=== PATIENT | female | born 1970 | race Caucasian/White ===

== ENCOUNTER 2017-02-27 10:18 | Emergency (ER) | payer BC ==
[~2017-02-27] VITALS: Ht 170.2 cm; Wt 67.2 kg
[2017-02-27 10:43] VITALS: BP 110/75; PULSE 68; RESP 16; TEMP 98.6; O2SAT 100
[2017-02-27 11:00] VITALS: BP 110/75; PULSE 68; RESP 16; TEMP 98.6; O2SAT 100
--- NOTE | 2017-02-27 11:05 | PD ---
HPI Chief Complaint: Abdominal Pain Time Seen by Provider: 10:49 Travel History International Travel<30 days: No Contact w/Intl Traveler<30days: No Traveled to known affect area: No History of Present Illness HPI The patient was seen and examined in the presence of the nurse. This patient has been having intermittent lower abdominal pain for 2 weeks. It's brought on by eating. Within 30 minutes of eating she gets cramping in the bilateral lower quadrants and then has diarrhea. Occasionally has bright red blood in the stool. No fever. No vomiting. She called her primary physician's office for follow-up and they told her to come to the emergency room instead. Symptoms severity is moderate. No alleviating factors. Worsened by eating PFSH Social History Alcohol Use: No Tobacco Use: No Substance Use: No Allergies-Medications (Allergen,Severity, Reaction): Coded Allergies: Animal Dander (Verified Allergy, Severe, 04/22/04) Dust (Verified Allergy, Severe, 04/22/04) Reported Meds & Prescriptions Reported Meds & Active Scripts Active Reported Topamax (Topiramate) 50 Mg Tab 50 Mg PO BID Hydrocortisone 10 Mg Tab 12.5 Mg PO DAILY Take with food to decrease GI upset Hydrocortisone 5 Mg Tab 5 Mg PO NOON Take with food to decrease GI upset Hydrocortisone 5 Mg Tab 3.5 Mg PO DAILY@1600 Take with food to decrease GI upset Review of Systems General / Constitutional: No: Fever Eyes: No: Visual changes HENT: No: Headaches Cardiovascular: No: Chest Pain or Discomfort Respiratory: No: Shortness of Breath Gastrointestinal: Positive: Abdominal Pain, Hematochezia Genitourinary: No: Dysuria Musculoskeletal: No: Pain Skin: No Rash Neurologic: No: Weakness Psychiatric: No: Depression Endocrine: No: Polydipsia Hematologic/Lymphatic: No: Easy Bruising Physical Exam Narrative GENERAL: Well-nourished, well-developed patient in no apparent distress. SKIN: Focused skin assessment reveals no rash and nodules. Skin is Warm and dry. HEAD: Atraumatic. Normocephalic. EYES: Pupils equal and round. No scleral icterus. No injection or drainage. ENT: No nasal bleeding or discharge. Mucous membranes pink and moist. NECK: Trachea midline. No JVD. CARDIOVASCULAR: Regular rate and rhythm. No murmur appreciated. RESPIRATORY: No accessory muscle use. Clear to auscultation. Breath sounds equal bilaterally. GASTROINTESTINAL: Abdomen soft, non-tender, nondistended. Hepatic and splenic margins not palpable. MUSCULOSKELETAL: No obvious deformities. No clubbing. No cyanosis. No edema. NEUROLOGICAL: Awake and alert. No obvious cranial nerve deficits. Motor grossly within normal limits. Normal speech. PSYCHIATRIC: Appropriate mood and affect; insight and judgment normal. Data Data Last Documented VS Vital Signs Date Time Temp Pulse Resp B/P Pulse Ox O2 Delivery O2 Flow Rate FiO2 02/27/17 11:08 16 02/27/17 11:00 98.6 68 110/75 100 02/27/17 10:43 Room Air Orders Iv Access Insert/Monitor (02/27/17 11:02) Complete Blood Count With Diff (02/27/17 11:02) Basic Metabolic Panel (Bmp) (02/27/17 11:02) Labs Laboratory Tests Test 02/27/17 11:19 White Blood Count 3.8 TH/MM3 Red Blood Count 4.39 MIL/MM3 Hemoglobin 13.8 GM/DL Hematocrit 40.2 % Mean Corpuscular Volume 91.6 FL Mean Corpuscular Hemoglobin 31.5 PG Mean Corpuscular Hemoglobin 34.4 % Concent Red Cell Distribution Width 12.4 % Platelet Count 178 TH/MM3 Mean Platelet Volume 8.6 FL Neutrophils (%) (Auto) 58.7 % Lymphocytes (%) (Auto) 29.9 % Monocytes (%) (Auto) 10.3 % Eosinophils (%) (Auto) 0.5 % Basophils (%) (Auto) 0.6 % Neutrophils # (Auto) 2.3 TH/MM3 Lymphocytes # (Auto) 1.1 TH/MM3 Monocytes # (Auto) 0.4 TH/MM3 Eosinophils # (Auto) 0.0 TH/MM3 Basophils # (Auto) 0.0 TH/MM3 CBC Comment DIFF FINAL Differential Comment Sodium Level 142 MEQ/L Potassium Level 3.4 MEQ/L Chloride Level 108 MEQ/L Carbon Dioxide Level 24.6 MEQ/L Anion Gap 9 MEQ/L Blood Urea Nitrogen 10 MG/DL Creatinine 0.80 MG/DL Estimat Glomerular Filtration 77 ML/MIN Rate Random Glucose 95 MG/DL Calcium Level 8.2 MG/DL [facility] Medical Decision Making Medical Screen Exam Complete: Yes Emergency Medical Condition: Yes Medical Record Reviewed: Yes Differential Diagnosis Colitis, irritable bowel syndrome, diverticulitis Narrative Course I have reviewed the patient's electronic medical record. Patient's normal vital signs Her abdomen is soft and benign and nontender She is not symptomatic now Sounds like she has a colitis IV placed CBC shows no leukocytosis or anemia Metabolic profile is normal My recommendation is to obtain GI follow-up and discuss colonoscopy where she could get direct visualization and tissue diagnosis in the form of biopsy. I wrote her medicine for nausea and pain to use if needed Diagnosis Primary Impression: Colitis Additional Instructions: The patient was advised to follow up with their physician and return if they worsen. The patient was warned about potential sedation for the medications they will receive on prescription. I suspect you will need a colonoscopy for formal tissue diagnosis Med/Other Pt SpecificInfo: Prescription(s) given Disposition: 01 DISCHARGE HOME Condition: Stable Carl Martinez MD Feb 27, 2017 11:05
[2017-02-27] MEDS ORDERED: HYDR10TA65 PO (11:13)
[2017-02-27] MEDS ORDERED: TOPA50TA7 PO (11:13)
[2017-02-27] MEDS ORDERED: HYDR5TAB64 PO ×2 (11:13)
[2017-02-27 11:45] LABS: AUTOMATED NEUTROPHIL # 2.3 TH/MM3 (1.8-7.7); BASOPHIL % 0.6 % (0.0-2.0); EOSINOPHIL % 0.5 % (0.0-4.0); HEMATOCRIT 40.2 % (35.0-46.0); HEMO FLAGS DIFF FINAL; LYMPH % 29.9 % (9.0-44.0); LYMPHOCYTE # 1.1 TH/MM3 (1.0-4.8); MEAN CELL VOLUME 91.6 FL (80.0-100.0); MEAN CORPUSCULAR HEMOGLOBIN 31.5 PG (27.0-34.0); MEAN CORPUSCULAR HGB CONC 34.4 % (32.0-36.0); MONO % 10.3 % (0.0-8.0); NEUT % 58.7 % (16.0-70.0); PLATELET COUNT 178 TH/MM3 (150-450); RED BLOOD COUNT 4.39 MIL/MM3 (4.00-5.30); RED CELL DISTRIBUTION WIDTH 12.4 % (11.6-17.2); WHITE BLOOD COUNT 3.8 TH/MM3 (4.0-11.0)
[2017-02-27 12:05] VITALS: BP 121/76; PULSE 57; RESP 16; O2SAT 100
[2017-02-27 12:05] LABS: POTASSIUM 3.4 MEQ/L (3.5-5.1)
[2017-02-27 12:08] LABS: BICARBONATE 24.6 MEQ/L (21.0-32.0)
[2017-02-27] MEDS ORDERED: ZOFR4TAB PO (12:39)
[2017-02-27] MEDS ORDERED: TYLETAB34 PO (12:39)
== END 2017-02-27 12:55 | disposition home or self-care (01) ==
LOC: PHED 10:18
DX: K52.9 Noninfective gastroenteritis and colitis, unspecified (principal)
CPT/HCPCS: 80048; 85025; 99283